=== PATIENT | male | born 1975 | race Caucasian/White ===

== ENCOUNTER 2019-01-06 12:06 | Day surgery (SDC) | payer OTHER ==
--- NOTE | 2019-01-03 14:00 | HP ---
PREOPERATIVE HISTORY AND PHYSICAL: DATE OF ADMISSION/SURGERY: 01/06/19 [facility] ATTENDING SURGEON: Dr. Aleah La.* (DICTATED BY JOSE GRECO) PROCEDURE: Right ankle fracture open reduction, internal fixation, syndesmosis fixation. CHIEF COMPLAINT: Right leg. HISTORY OF PRESENT ILLNESS: Jerry is a 43-year-old male, who presents to clinic for right ankle fracture. He states on 01/01/19, he was walking and slipped. He caught his leg between pieces of lumber and felt the snap right away. He was seen in the ER where they placed him in a well-padded splint. He has been nonweightbearing since then. He rates his pain as 10/10. It is better if he does not move it. He is a smoker a pack per day. He denies diabetes or history of DVT or PE. He denies any prior fracture of the ankle. He has been using Percocet for pain which is minimally helpful. He denies numbness, tingling, fevers, chills, chest pain, or shortness of breath. He is doing well, otherwise. PAST MEDICAL HISTORY: Gout. PAST SURGICAL HISTORY: Double discectomy. MEDICATIONS: Percocet 5/325 one every 4 to 6 hours as needed for pain. ALLERGIES: CODEINE, AVELOX. FAMILY HISTORY: Positive for cancer. SOCIAL HISTORY: He lives with his spouse. He works as a self-employed contractor. He reports tobacco use at a pack per day. He denies alcohol consumption. He never exercises. He is left-hand dominant. REVIEW OF SYSTEMS: A 14-point review of systems was reviewed with the patient. Positive for chronic back pain and current complaint, otherwise negative. Denies fever, chills, chest pain, shortness of breath, history of bleeding disorder, history of DVT or PE. PHYSICAL EXAMINATION GENERAL: A 43-year-old well-developed, well-nourished male, in no acute distress. VITAL SIGNS: Height 76, weight 270, pulse 72, blood pressure 146/74, temperature 97.8. BMI 32.9. HEENT: Normocephalic, atraumatic. PERRL. Throat clear. NECK: Supple. PULMONARY: Lungs are clear to auscultation bilaterally. No wheezing, rhonchi, or rales. CARDIOVASCULAR: Regular rate and rhythm, S1 and S2. No murmurs, gallops, or rubs. No edema. ABDOMEN: Positive bowel sounds. Soft, nontender. NEURO: Alert and oriented x3. Cranial nerves grossly intact. MUSCULOSKELETAL: Right lower extremity: Skin is intact. No warmth or erythema. He has diffuse swelling of the ankle, but the skin is intact. No abrasions or open wounds. Calf is soft, nontender. +2 DP and PT pulse. Able to flex and extend his toes. Sensation intact to light touch distally. DIAGNOSTIC STUDIES: Multi-view x-rays of the right ankle revealed trimalleolar ankle fracture. ASSESSMENT AND PLAN: Jerry is 43-year-old male who presents to clinic for right trimalleolar ankle fracture. It was explained to him that this needs surgical treatment. The risks of surgery to include anesthesia; bleeding; infection; injury to blood vessels, nerves, surrounding structures; blood clot; numbness; stiffness; scarring; need for hardware removal in the future and malunion were discussed with the patient as well as procedure and postop recovery. He has agreed to undergo a right ankle fracture open reduction and internal fixation, syndesmosis fixation with Dr. La on 01/06/19. He should ice, elevate, and use NSAIDs as needed for discomfort at this point. He will continue to be nonweightbearing. He was placed in a boot today in clinic. He will follow up with Dr. La in 10 to 14 days postop for followup and suture removal. Percocet will be used for postop pain management. Of note, he does have a history of bradycardia during his last spine surgery several years ago but has not had to follow up with any coater helper or had any cardiac issues since then. JOSE GRECO [id number]/[facility] #: [id number] [facility]ITAL[facility]as[facility]
[~2019-01-06 12:06] MED LIST: Buffered Lidocaine 1% SYRIN* 1 ML/SYRINGE INTRADERM ONE; Famotidine IV* 10 MG/ML 2 ML (20 mg) IV ONE; Lactated Ringers 1000 ML Bag* 1,000 ML IV SCH
[2019-01-06] MEDS ORDERED: ceFAZolin VIAL(*) VIAL ONE (12:20)
[2019-01-06] MEDS ORDERED: Famotidine IV* 10 MG/ML 2 ML (20 mg) ONE (12:21)
[2019-01-06] MEDS ORDERED: ceFAZolin 2 GM in NS PREMIX(*) 2 GM/100 ML BAG IVPB ONE (12:21)
[2019-01-06] MEDS ORDERED: Midazolam* 1 MG/ML 5 ML VIAL (5 MG) ONE (12:30)
[2019-01-06] MEDS ORDERED: fentaNYL* 50 MCG/ML 2 ML VIAL (100 MCG VIAL) ONE ×3 (12:30→14:00)
[2019-01-06] MEDS ORDERED: Buffered Lidocaine 1% SYRIN* 1 ML/SYRINGE INTRADERM ONE (13:13)
[2019-01-06] MEDS ORDERED: Ropivacaine 0.2% * 2 MG/ML VIAL ONE (13:17)
[2019-01-06] MEDS ORDERED: KETAMINE HCL* 50 MG/ML 10 ML VIAL ONE (14:05)
[2019-01-06] MEDS ORDERED: Dexamethasone IV* 4 MG/ML 1 ML (4 MG) ONE (14:08)
[2019-01-06] MEDS ORDERED: Ondansetron INJ* 2 MG/ML VIAL ONE (14:08)
[2019-01-06] MEDS ORDERED: Propofol* 10 MG/ML 20 ML BTL ONE (14:09)
[2019-01-06] MEDS ORDERED: Lidocaine 2% PF * 5 ML VIAL ONE (14:09)
[2019-01-06] MEDS ORDERED: Ketorolac INJ* 30 MG/ML 1 ML VIAL ONE (14:09)
[2019-01-06] MEDS ORDERED: HYDROmorphone INJ* 0.5 MG/0.5 ML SYRINGE ONE ×2 (14:13→14:54)
[2019-01-06] MEDS ORDERED: Midazolam* 1 MG/ML 2 ML VIAL (2 MG) ONE (14:37)
[2019-01-06] MEDS ORDERED: oxyCODONE/Acetamin 5/325 MG* TAB PO PRN (15:30)
[2019-01-06] MEDS ORDERED: DiMENhydriNATE IV* 50 MG/ML VIAL IV PUSH PRN (15:30)
[2019-01-06] MEDS ORDERED: Naloxone* 0.4 MG/ML 1 ML VIAL IV PRN (15:30)
[2019-01-06] MEDS ORDERED: HYDROmorphone INJ1* 1 MG/ML SYRINGE ONE ×2 (15:37→16:04)
[2019-01-06] MEDS ORDERED: oxyCODONE/Acetamin 5/325 MG* TAB ONE (15:37)
[2019-01-06] MEDS: HYDROmorphone INJ1* 1 MG/ML SYRINGE IV PRN ×5 (15:41→16:02)
[2019-01-06 17:22] VITALS: BP 144/89
--- NOTE | 2019-01-07 14:20 | OP ---
DATE OF OPERATION: 01/06/19 - [facility] DATE OF : 79 ATTENDING SURGEON: Aleah La MD POULTRY KILLER: JOSE Harper. An education assistant was needed for the entirety of the case to help with positioning, retraction, and utilized throughout all portions of the case. ANESTHESIOLOGIST: Dr. Cliare. ANESTHESIA: General. PRE-OP DIAGNOSIS: Right trimalleolar ankle fracture. POST-OP DIAGNOSIS: Right trimalleolar ankle fracture. OPERATIVE PROCEDURE: Right ankle open reduction and internal fixation with syndesmosis fixation. COMPLICATIONS: None. ESTIMATED BLOOD LOSS: Minimal. TOURNIQUET TIME: About 68 minutes at 250 mmHg. INDICATIONS: Jerry Valiente is a 43-year-old male who was walking and slipped, he caught his leg between pieces of lumber and felt a snap. He had a lot of pain, he was unable to weight bear. He was seen in the ER, diagnosed with an ankle fracture. After extensive discussion of risks and benefits of operative versus nonoperative treatment, he has elected to proceed with surgical treatment. The patient was advised to quit smoking as it can affect healing as well as increase his risk. Otherwise, risks and benefits were discussed included but not limited to bleeding; infection; damage to nerves, vessels, surrounding structures; wound nonhealing; persistent pain; need for further surgery; scaring; stiffness; incomplete relief of symptoms; and risks of anesthesia. DESCRIPTION OF PROCEDURE: The patient was greeted in the preoperative area by the attending surgeon. Correct extremity was marked. Consent was confirmed. The patient was brought back to the operating suite, was placed in the supine position on the operating room table. He then underwent general anesthesia with LMA intubation after which a bump was placed under his lateral leg and the right leg was prepped and draped in the usual sterile fashion beginning with chlorhexidine soap, scrub, and alcohol wipe and a final prep with ChloraPrep. Unsterile tourniquet was placed high on the proximal thigh. After appropriate surgical pause indicating site, side, procedure, administration of antibiotics, the 15 blade was used to make an incision in line with the fibula. Soft tissues were carefully dissected to expose the fracture which is a long oblique fracture that extended distally. The fracture fragments were cleaned of any blood clot and loose debris. The fracture was irrigated and then provisionally reduced. Two lag screws were then used to hold the fracture fragments in position. Then, an Arthrex one-third tubular plate was then used, an 8-hole was chosen. The plate was then secured distally with a cancellous screw and proximally with cortical screws. This helped to neutralize the plate. After this was done and x- rays were confirmed, it demonstrated excellent alignment. The syndesmosis was addressed. The drill was used to make a path for the tight rope which was then placed parallel to the joint line at an angle of 30 degrees anteriorly. This was confirmed under mini C-arm. After this was done and drilled to 4 cortices, TightRope was deployed and it was then cinched down with the dorsiflexion. Final images were obtained. The wounds were then copiously irrigated sterile saline. The skin was closed in layers, fascia was closed with 2-0 Vicryl, skin with 3-0 Monocryl and 3-0 nylon. Sterile dressings were applied. The wound was injected with 0.2 % ropivacaine. Tourniquet was deflated and well-padded short leg splint was placed. He was awoken from anesthesia and transferred to PACU in stable condition. POSTOPERATIVE PLAN: He will be nonweightbearing. He will be discharged on pain medications. DVT prophylaxis considered but deferred due to no previous personal or family history. I will see the patient back in 10 to 14 days postop. The extremity was pink and well perfused at the end of surgery. [id number]/[facility] #: [id number] [facility]hti
== END 2019-01-06 17:20 | disposition home or self-care (01) ==
LOC: OREAST 12:06
PROVIDERS: ATTEND Orthopaedic Surgery
DX: S82.851A Displaced trimalleolar fracture of right lower leg, initial encounter for closed fracture (principal); W01.0XXA Fall on same level from slipping, tripping and stumbling without subsequent striking against object, initial encounter; Y92.89 Other specified places as the place of occurrence of the external cause; Z72.0 Tobacco use; K21.9 Gastro-esophageal reflux disease without esophagitis; F41.8 Other specified anxiety disorders; M54.9 Dorsalgia, unspecified; Z79.899 Other long term (current) drug therapy
CPT/HCPCS: 76000; A9270-GY; C1713; J0690; J1100; J1170; J1885; J2250; J2405; J2704; J2795; J3010